=== PATIENT | male | born 1950 | race Caucasian/White ===

== ENCOUNTER 2016-06-15 17:50 | Inpatient (IN) | payer MEDICAID ==
[~2016-06-15] VITALS: Ht 170.2 cm; Wt 51.0 kg
[2016-06-15 19:01] LABS: Basophils # (auto) 0 uL; Basophils % (auto) 0.3 % (0.0-2.0); Eosinophils # (auto) 0 uL; Hematocrit 46.5 % (41.0-53.0); Hemoglobin 15.8 g/dL (13.5-17.5); Lymphocytes # (auto) 1.9 uL; Lymphocytes % (auto) 17.8 % (10.0-50.0); Mean Corpuscular Hemoglobin 31.5 pg (28.0-32.0); Mean Corpuscular Hgb Conc. 34.1 g/dL (32.0-36.0); Mean Corpuscular Volume 92.5 fL (80.0-100.0); Monocytes % (auto) 8.9 % (0.0-12.0); Neutrophils # (auto) 7.9 uL; Platelet Count (auto) 227 10^3/uL (140-450); Red Cell Distribution Width 14.1 % (11.6-16.0); White Blood Cell 10.8 10^3/uL (4.4-10.8)
[2016-06-15 19:32] LABS: Albumin 4.1 g/dL (3.4-5.0); BUN/Creatinine Ratio 9.7; Calcium 9.1 mg/dL (8.5-10.1); Potassium 4.3 mmol/L (3.5-5.1)
[2016-06-15 19:35] LABS: Bilirubin, Total 1.3 mg/dL (0.2-1.0); Total Protein 7.9 g/dL (6.4-8.2)
[2016-06-15 21:28] LABS: Urine Bilirubin Negative (Negative); Urine Ca Oxalate Crystal FEW (None Seen); Urine Color Yellow (Yellow); Urine Glucose Normal (Normal); Urine Mucus FEW (None Seen); Urine Nitrite Negative (Negative); Urine RBC 34 /hpf (0 - 3); Urine Urobilinogen Normal (Negative); Urine pH 5.5 (5.0-8.0)
[2016-06-15] MEDS ORDERED: SODIUM CHLORIDE 0.9% 1,000 ML IV ONE (21:30)
[2016-06-15] MEDS ORDERED: ONDANSETRON HCL 4 MG/2 ML VIAL IV ONE (21:30)
[2016-06-15] MEDS ORDERED: HYDROmorphone HCL 2 MG/ML VL IV ONE (21:30)
[2016-06-15 21:49] LABS: Urine Blood 2+ /uL (Negative); Urine Ketone 1+ (Negative)
[2016-06-15 22:05] LABS: INR 0.96 (0.9-1.15); Prothrombin Time 10.4 sec (9.37-12.3)
[2016-06-16] VITALS (7 sets, daily range): BP systolic 100–139; BP diastolic 56–81
[2016-06-16] MEDS ORDERED: ONDANSETRON HCL 4 MG/2 ML VIAL IV PRN (01:15)
[2016-06-16] MEDS ORDERED: cefTRIAXone 1GM/50ML D5W 50 ML IV ONE (01:15)
[2016-06-16] MEDS ORDERED: MORPHINE SULF INJ 2 MG/ML SYRINGE 1ML IV PRN (01:15)
[2016-06-16] MEDS ORDERED: ACETAMINOPHEN 325 MG TAB PO PRN (01:15)
[2016-06-16] MEDS ORDERED: TAMSULOSIN HYDROCHLORIDE 0.4 MG CAP PO ONE (01:15)
[2016-06-16] MEDS ORDERED: TEMAZEPAM 15 MG CAP PO PRN (01:15)
[2016-06-16] MEDS ORDERED: HYDROcodone-ACET 5/325MG TAB PO PRN (01:15)
[2016-06-16] MEDS: SODIUM CHLORIDE 0.9% 1,000 ML IV SCH ×2 (03:20→14:21)
[2016-06-16] MEDS: FAMOTIDINE 20 MG TAB PO SCH ×2 (09:06→22:05)
[2016-06-16] MEDS ORDERED: ENOXAPARIN SOD 40 MG/0.4 ML SYRINGE SC SCH (10:00)
[2016-06-16] MEDS: TAMSULOSIN HYDROCHLORIDE 0.4 MG CAP PO SCH (18:19)
[2016-06-16] MEDS: cefTRIAXone 1GM/50ML D5W 50 ML IV SCH (21:10)
[2016-06-17] MEDS: SODIUM CHLORIDE 0.9% 1,000 ML IV SCH ×2 (04:39→17:01)
[2016-06-17 05:23] VITALS: BP 115/65
[2016-06-17 07:30] LABS: Basophils # (auto) 0 uL; Basophils % (auto) 0.2 % (0.0-2.0); Eosinophils # (auto) 0 uL; Eosinophils % (auto) 0.4 % (0.0-7.0); Hematocrit 37.2 % (41.0-53.0); Hemoglobin 12.6 g/dL (13.5-17.5); Lymphocytes # (auto) 1.8 uL; Lymphocytes % (auto) 37.9 % (10.0-50.0); Mean Corpuscular Hemoglobin 31.6 pg (28.0-32.0); Mean Corpuscular Volume 93.1 fL (80.0-100.0); Mean Platelet Volume 8.3 fL (7.4-10.4); Monocytes # (auto) 0.5 uL; Monocytes % (auto) 10.1 % (0.0-12.0); Neutrophils # (auto) 2.4 uL; Neutrophils % (auto) 51.4 % (37.0-80.0); Platelet Count (auto) 158 10^3/uL (140-450); Red Cell Distribution Width 13.9 % (11.6-16.0); White Blood Cell 4.6 10^3/uL (4.4-10.8)
[2016-06-17 07:49] LABS: Albumin 2.9 g/dL (3.4-5.0); BUN/Creatinine Ratio 7.8; Bilirubin, Total 0.6 mg/dL (0.2-1.0); Potassium 3.8 mmol/L (3.5-5.1); Total Protein 6.1 g/dL (6.4-8.2)
[2016-06-17 08:00] VITALS: BP 129/76
[2016-06-17 09:00] VITALS: BP 129/76
[2016-06-17] MEDS: FAMOTIDINE 20 MG TAB PO SCH ×2 (10:27→22:10)
[2016-06-17 13:00] VITALS: BP 142/84
[2016-06-17 16:54] VITALS: BP 132/73
[2016-06-17] MEDS: TAMSULOSIN HYDROCHLORIDE 0.4 MG CAP PO SCH (19:26)
[2016-06-17] MEDS: cefTRIAXone 1GM/50ML D5W 50 ML IV SCH (21:00)
[2016-06-17 21:46] VITALS: BP 159/94
[2016-06-18 04:52] VITALS: BP 115/65
[2016-06-18 06:04] LABS: Basophils # (auto) 0 uL; Basophils % (auto) 0.3 % (0.0-2.0); Eosinophils # (auto) 0 uL; Eosinophils % (auto) 0.4 % (0.0-7.0); Hematocrit 39.6 % (41.0-53.0); Hemoglobin 13.7 g/dL (13.5-17.5); Lymphocytes % (auto) 36.4 % (10.0-50.0); Mean Corpuscular Hemoglobin 32.3 pg (28.0-32.0); Mean Corpuscular Hgb Conc. 34.6 g/dL (32.0-36.0); Mean Corpuscular Volume 93.3 fL (80.0-100.0); Mean Platelet Volume 8.5 fL (7.4-10.4); Monocytes # (auto) 0.4 uL; Monocytes % (auto) 7.8 % (0.0-12.0); Neutrophils # (auto) 3.1 uL; Neutrophils % (auto) 55.1 % (37.0-80.0); Platelet Count (auto) 180 10^3/uL (140-450); Red Cell Distribution Width 13.8 % (11.6-16.0); White Blood Cell 5.6 10^3/uL (4.4-10.8)
[2016-06-18 06:20] LABS: Albumin 3.1 g/dL (3.4-5.0); BUN/Creatinine Ratio 9.4; Bilirubin, Total 0.6 mg/dL (0.2-1.0); Calcium 8.6 mg/dL (8.5-10.1); Potassium 3.8 mmol/L (3.5-5.1); Total Protein 6.6 g/dL (6.4-8.2)
[2016-06-18] MEDS: SODIUM CHLORIDE 0.9% 1,000 ML IV SCH (06:21)
[2016-06-18 08:00] VITALS: BP 115/65
[2016-06-18 09:00] VITALS: BP 117/71
[2016-06-18] MEDS: FAMOTIDINE 20 MG TAB PO SCH (10:06)
[2016-06-18 11:35] VITALS: BP 117/71
== END 2016-06-18 13:00 | disposition home or self-care (01) | DRG 465 ==
LOC: ER 17:50 → OVERFLOW 17:51 → CENTRAL 06-16 01:42
PROVIDERS: ADMIT Nurse Practitioner; ATTEND Internal Medicine
DX: N13.2 Hydronephrosis with renal and ureteral calculous obstruction (principal); E44.1 Mild protein-calorie malnutrition; N39.0 Urinary tract infection, site not specified; K42.9 Umbilical hernia without obstruction or gangrene; K57.30 Diverticulosis of large intestine without perforation or abscess without bleeding; Z87.442 Personal history of urinary calculi; Z71.9 Counseling, unspecified; Z68.1 Body mass index [BMI] 19.9 or less, adult
CPT/HCPCS: 36415; 74000; 74176; 80053; 81001; 85025; 85610; 85730; 87086; 96361; 96374; 96375; J0696; J2405

== ENCOUNTER 2016-09-10 15:02 | Emergency (ER) | payer MEDICAID ==
[~2016-09-10] VITALS: Ht 172.7 cm; Wt 59.0 kg
[2016-09-10 15:45] VITALS: BP 155/79
[2016-09-10] MEDS ORDERED: ONDANSETRON ODT 4 MG TAB PO ONE (17:30)
[2016-09-10] MEDS ORDERED: KETOROLAC TROMETH 60MG/2ML VIAL IM ONE (17:30)
[2016-09-10 17:32] LABS: Urine Bilirubin Negative (Negative); Urine Ca Oxalate Crystal MANY (None Seen); Urine Color Yellow (Yellow); Urine Glucose Normal (Normal); Urine Ketone Negative (Negative); Urine Mucus FEW (None Seen); Urine Nitrite Negative (Negative); Urine RBC 233 /hpf (0 - 3); Urine Squamous Epithelial Cell FEW /hpf (<5)
[2016-09-10 17:36] LABS: Urine Blood 2+ /uL (Negative)
== END 2016-09-10 17:57 | disposition home or self-care (01) ==
LOC: ER 15:02
DX: N39.0 Urinary tract infection, site not specified (principal); Z87.442 Personal history of urinary calculi
CPT/HCPCS: 81001; 96372; 99283; J1885; Q0162

== ENCOUNTER 2017-11-09 11:09 | Emergency (ER) | payer MEDICAID, MEDICARE ==
[~2017-11-09] VITALS: Ht 172.7 cm; Wt 59.0 kg
[2017-11-09 12:14] VITALS: BP 123/64
== END 2017-11-09 13:34 | disposition home or self-care (01) ==
LOC: ER 11:09
DX: L29.8 Other pruritus (principal); R21 Rash and other nonspecific skin eruption